=== PATIENT | male | born 1970 | race Caucasian/White ===

== ENCOUNTER → 2023-05-01 | Outpatient (CLI) | payer OTHER ==
[2023-05-05 11:12] LABS: FREE TESTOSTERONE(DIRECT) 9.9 pg/mL (7.2-24.0); TESTOSTERONE, SERUM 191 ng/dL (264-916)
== END ==
LOC: LAB SHORT 18:51 → LAB 18:51
PROVIDERS: Family Medicine
DX: E29.1 Testicular hypofunction (principal); Z79.899 Other long term (current) drug therapy
CPT/HCPCS: 84402; 84403; 84443

== ENCOUNTER → 2023-08-14 | Outpatient (CLI) | payer OTHER, MEDICARE ==
[2023-08-19 15:56] LABS: TESTOSTERONE, FREE BY DIALYSIS 33.3 pg/mL (47.0-244.0); TESTOSTERONE, TOTAL MASS SPEC 206.7 ng/dL (300.0-890.0)
== END ==
LOC: LAB SHORT 19:23 → LAB 19:23
PROVIDERS: Family Medicine
DX: Z51.81 Encounter for therapeutic drug level monitoring (principal); Z79.899 Other long term (current) drug therapy
CPT/HCPCS: 84402; 84403